=== PATIENT | female | born 1950 | race Caucasian/White ===

== ENCOUNTER → 2018-11-10 | Outpatient (CLI) | payer MEDICARE, MEDICAID | LOC: RAD 10:17 | PROVIDERS: ATTEND Nurse Practitioner | DX: Z12.31 Encounter for screening mammogram for malignant neoplasm of breast (principal) | CPT/HCPCS: 77067 ==

== ENCOUNTER 2018-12-07 05:39 | Outpatient (CLI) | payer MEDICARE, MEDICAID ==
[~2018-12-07] VITALS: Ht 168.9 cm; Wt 73.5 kg
[2018-12-07] MEDS ORDERED: ATOR20TA66 PO (15:04)
[2018-12-07] MEDS ORDERED: BUSP10TA95 PO (15:04)
== END 2018-12-07 15:11 | disposition home or self-care (01) ==
LOC: PREOP 05:39
PROVIDERS: ATTEND Surgery
DX: Z01.818 Encounter for other preprocedural examination (principal)

== ENCOUNTER 2018-12-15 07:00 | Day surgery (SDC) | payer MEDICARE, MEDICAID ==
[~2018-12-15] VITALS: Ht 168.9 cm; Wt 73.5 kg
[~2018-12-15 07:00] MED LIST: ATOR20TA66 PO; BUSP10TA95 PO
[2018-12-15] MEDS ORDERED: LACTATED RINGERS 1,000 ML IV ONE (07:03)
--- OUTSIDE RECORDS SUMMARY | 2018-12-15 07:03 | XMS REPORT | Continuity of Care Document ---
Author Organization Unknown Address Unknown Phone Unavailable Allergies There is no data. Medications There is no data. Problems There is no data. Procedures There is no data. Results Test Result Range LIPID PANEL - 11/03/18 08:40 CHOLESTEROL, TOTAL 233 mg/dL <200 HDL CHOLESTEROL 53 mg/dL >50 TRIGLYCERIDES 100 mg/dL <150 LDL-CHOLESTEROL 159 mg/dL (calc) NRG CHOL/HDLC RATIO 4.4 (calc) <5.0 NON HDL CHOLESTEROL 180 mg/dL (calc) <130 CMP - 11/03/18 08:40 GLUCOSE 96 mg/dL 65-99 UREA NITROGEN (BUN) 16 mg/dL 7-25 CREATININE 0.66 mg/dL 0.50-0.99 eGFR NON-AFR. PUERTO RICAN 92 mL/min/1.73m2 > OR=60 eGFR 107 mL/min/1.73m2 > OR=60 BUN/CREATININE RATIO NOT APPLICABLE (calc) 6-22 SODIUM 142 mmol/L 135-146 POTASSIUM 4.5 mmol/L 3.5-5.3 CHLORIDE 104 mmol/L 98-110 CARBON DIOXIDE 29 mmol/L 20-32 CALCIUM 9.9 mg/dL 8.6-10.4 PROTEIN, TOTAL 7.4 g/dL 6.1-8.1 ALBUMIN 4.5 g/dL 3.6-5.1 GLOBULIN 2.9 g/dL (calc) 1.9-3.7 ALBUMIN/GLOBULIN RATIO 1.6 (calc) 1.0-2.5 BILIRUBIN, TOTAL 0.4 mg/dL 0.2-1.2 ALKALINE PHOSPHATASE 91 U/L 33-130 AST 25 U/L 10-35 ALT 22 U/L 6-29 Encounters ACCT No. Visit Date/Time Discharge Status Pt. Type Provider Facility Loc./Unit Complaint [id number] 11/30/2018 16:00:00 11/30/2018 23:59:59 CLS Outpatient [facility] [id number] 11/03/2018 08:00:00 Document Registration
[2018-12-15] MEDS ORDERED: MIDAZOLAM 2 MG/2 ML (VERSED) VIAL ONE (07:19)
[2018-12-15] MEDS ORDERED: PROPOFOL INJECTION 50 ML IV ONE ×2 (07:19→08:13)
--- NOTE | 2018-12-15 07:37 | Progress Note-Pre Operative ---
Pre-Operative Progress Note H&P Reviewed The H&P was reviewed, patient examined and no changes noted. Date Seen by Provider: Dec 15, 2018 Time Seen by Provider: 07:37 Date H&P Reviewed: Dec 15, 2018 Time H&P Reviewed: 07:37 Pre-Operative Diagnosis: hx polyps MCKENNA ROJO DO Dec 15, 2018 07:37
[2018-12-15] MEDS ORDERED: LACTATED RINGERS 1,000 ML IV STA (07:54)
[2018-12-15 08:02] VITALS: BP 127/66
[2018-12-15 08:30] VITALS: BP 126/78
[2018-12-15 08:35] VITALS: BP 126/78
--- NOTE | 2018-12-15 08:43 | Discharge Inst-Simple/Standard ---
Discharge Inst-Standard Discharge Medications New, Converted or Re-Newed RX: RX on Chart Patient Instructions/Follow Up Plan of Care/Instructions/FU: 2 weeks Tod Activity as Tolerated: Yes Discharge Diet: Regular Diet MCKENNA ROJO DO Dec 15, 2018 08:43
--- NOTE | 2018-12-15 08:45 | Progress Note-Post Operative ---
Post-Operative Progess Note Surgeon (s)/Account Executive Key Accounts (s) Surgeon MCKENNA ROJO DO Account Executive Key Accounts: na Pre-Operative Diagnosis hx polyps Post-Operative Diagnosis colon polyps Procedure & Operative Findings Date of Procedure 12/15/18 Procedure Performed/Findings colonoscopy c hot bx polypectomy x 2 and snare polypectomy x 1 Anesthesia Type per clam grower Estimated Blood Loss Estimated blood loss (mL): none Specimens/Packing Specimens Removed ascending, hepatic flexure and sigmoid colon polyps MCKENNA ROJO DO Dec 15, 2018 08:45
[2018-12-15 09:00] VITALS: BP 148/83
[2018-12-15 09:15] VITALS: BP 148/83
--- NOTE | 2018-12-15 11:01 | Anesthesia-General Post-Op ---
MAC Patient Condition Mental Status/LOC: Same as Preop Cardiovascular: Satisfactory Nausea/Vomiting: Absent Respiratory: Satisfactory Pain: Controlled Complications: Absent Post Op Complications Complications None Follow Up Care/Instructions Patient Instructions None needed. Anesthesiology Discharge Order Discharge Order Patient is doing well, no complaints, stable vital signs, no apparent adverse anesthesia problems. No complications reported per nursing. CRISTO HINOJOSA CRNA Dec 15, 2018 11:01
--- NOTE | 2018-12-16 01:07 | OPERATIVE REPORT ---
DATE OF SERVICE: 12/15/2018 PREOPERATIVE DIAGNOSIS: History of colon polyps. POSTOPERATIVE DIAGNOSIS: Colon polyps. PROCEDURE: Colonoscopy with hot biopsy polypectomy x2 and snare polypectomy x1. SURGEON: Mckenna Baron DO ANESTHESIA: Per SALES AND MARKETING INTERN. ESTIMATED BLOOD LOSS: None. COMPLICATIONS: None. INDICATIONS: The patient is a 68-year-old female with history of colon polyps. She understands risks and benefits of procedure and wished to proceed with procedure. Consent was signed in the chart. The patient was taken to the endoscopy suite, placed in left lateral recumbent position. Timeout was performed. Digital rectal exam was performed. There were no palpable polyps, masses or ulcerations. Scope was inserted in the rectum, advanced all the way to the cecum with minimal difficulty. Prep was moderate even with irrigation and suction. The cecum was visualized. There were no polyps, masses or ulcerations visualized within the cecum. The scope was then slowly retracted back in the ascending colon, a larger polyp was present, which hot biopsy polypectomy was performed. Scope was continued slowly retracted back and in the hepatic flexure, another polyp was present, which hot biopsy polypectomy was performed. Scope was continued slowly retracted back and the areas were irrigated and suctioned where fair amount of stool was present. A complete evacuation of the remaining stool was unable to be performed trying to obtain best visualization. Scope was continuously retracted back through the transverse, descending colon, which was continued to be irrigated and suctioned. Once in the sigmoid colon, a little larger polyp was present, which snare polypectomy was performed. This was suctioned and obtained for specimen. The colon was continued to be irrigate and suction noting no other large pathology. Once in the rectum, scope was retroflexed noting no other pathology. Scope was returned to its normal position, slowly withdrawn until completely removed. The patient tolerated procedure well without any complications. She was taken to recovery room in stable condition. RECOMMENDATIONS: The patient will follow up in 2 weeks to discuss pathology results. We would recommend a repeat colonoscopy in 6 months to a year for reevaluation due to poor prep and a little larger polyps. Job ID: [id number] DocumentID: [id number] Dictated Date: 12/15/2018 16:04:36 Clinical Consultant Date: 12/16/2018 01:07:02 Dictated By: MCKENNA BARON DO [facility] CENTERJanie
== END 2018-12-15 09:15 | disposition home or self-care (01) ==
LOC: ENDO 07:00
PROVIDERS: ATTEND Surgery
DX: Z12.11 Encounter for screening for malignant neoplasm of colon (principal); D12.5 Benign neoplasm of sigmoid colon; D12.2 Benign neoplasm of ascending colon; D12.3 Benign neoplasm of transverse colon; E78.5 Hyperlipidemia, unspecified; Z79.899 Other long term (current) drug therapy; Z80.3 Family history of malignant neoplasm of breast; Z83.3 Family history of diabetes mellitus
CPT/HCPCS: 88305

== ENCOUNTER → 2019-05-15 | Outpatient (CLI) | payer MEDICARE, MEDICAID ==
--- NOTE | 2019-05-15 11:35 | Diagnostic Imaging Report ---
INDICATION: [id number] history of smoking. COMPARISON: None. TECHNIQUE: Routine noncontrast low-dose CT of the chest was performed per department protocol. Auto Exposure Controls were utilized during the CT exam to meet ALARA standards for radiation dose reduction. FINDINGS: Evaluation of lung acosta demonstrates single ovoid micronodular density within the superior segment of the left lower lobe. This, however, may be endobronchial in location. Lesion in question measures 3 x 7 mm (image 114, series 2). There is background mild emphysematous disease. No other suspicious pulmonary nodule or mass is identified. There is no focal consolidation, large effusion, nor pneumothorax. Cardiomediastinal structures show normal heart size. There is no large pericardial effusion. There is mild scattered calcified aortic atherosclerosis and minimal calcified coronary atherosclerosis. Mildly prominent precarinal lymph node measures 1.5 x 1.4 cm. A few minimally prominent, yet subcentimeter AP window lymph nodes are also noted. No abnormal hilar or axillary adenopathy is identified. Osseous structures show no acute abnormalities. Included portions of the upper abdomen are unremarkable as well. IMPRESSION: 1. Single micronodular density involving the superior segment of the left lower lobe, which again may be endobronchial in location. Six-month follow-up is recommended to ensure stability. 2. Background mild emphysematous disease. 3. Slightly prominent mediastinal adenopathy as described above. This could be evaluated on follow-up as well. LUNG-RADS CATEGORY: 3. Dictated by: Dictated on workstation # [id number]
== END ==
LOC: RAD 08:42
PROVIDERS: ATTEND Nurse Practitioner Family
DX: Z12.2 Encounter for screening for malignant neoplasm of respiratory organs (principal); J43.9 Emphysema, unspecified; J98.4 Other disorders of lung; I70.0 Atherosclerosis of aorta; I25.10 Atherosclerotic heart disease of native coronary artery without angina pectoris; F17.210 Nicotine dependence, cigarettes, uncomplicated

== ENCOUNTER 2019-05-29 05:37 | Outpatient (CLI) | payer MEDICARE, MEDICAID ==
[~2019-05-29] VITALS: Ht 167 cm; Wt 70.4 kg
[2019-05-29] MEDS ORDERED: VISM150C PO (14:20)
[2019-05-29] MEDS ORDERED: UMEC62.5 IH (14:21)
== END 2019-05-29 14:24 | disposition home or self-care (01) ==
LOC: PREOP 05:37
PROVIDERS: ATTEND Surgery
DX: Z01.818 Encounter for other preprocedural examination (principal)

== ENCOUNTER → 2019-06-22 | Outpatient (CLI) | payer MEDICARE, MEDICAID ==
[~2019-06-22] MED LIST changes: +RT-ALBUTEROL SULF 2.5 MG/3 ML PRE-MIX VIAL INH ONE; +UMEC62.5 IH; +VISM150C PO
[2019-06-22 15:35] LABS: ABG BASE EXCESS 0.3 MMOL/L (-2.5-2.5); ABG OXYGEN SATURATION 94 % (94-100); ABG PCO2 35 MMHG (35-45); ABG PH 7.44 (7.37-7.43); ABG PO2 59 MMHG (79-93); ABG TCO2 25.1 MMOL/L (21.0-31.0)
[2019-06-22 15:37] LABS: ALLENS TEST POSITIVE
[2019-06-22 15:38] LABS: PATIENT TEMP 36.5; VENTILATOR NO
== END ==
LOC: RT 14:25
PROVIDERS: ATTEND Nurse Practitioner Family
DX: J30.9 Allergic rhinitis, unspecified (principal); C43.9 Malignant melanoma of skin, unspecified; R91.8 Other nonspecific abnormal finding of lung field; Z72.0 Tobacco use
CPT/HCPCS: 36600; 82805; 94060; 94640; 94726; 94729

== ENCOUNTER 2019-06-25 09:00 | Outpatient (CLI) | payer MEDICARE, MEDICAID ==
[~2019-06-25] VITALS: Ht 165 cm; Wt 72.7 kg
[~2019-06-25 09:00] MED LIST changes: -RT-ALBUTEROL SULF 2.5 MG/3 ML PRE-MIX VIAL INH ONE
== END 2019-06-25 09:32 | disposition home or self-care (01) ==
LOC: PREOP 09:00
PROVIDERS: ATTEND Internal Medicine Critical Care Medicine
DX: Z01.818 Encounter for other preprocedural examination (principal)

== ENCOUNTER → 2019-06-26 | Outpatient (CLI) | payer MEDICARE, MEDICAID | LOC: RAD 08:15 | PROVIDERS: ATTEND Nurse Practitioner Family | DX: C43.9 Malignant melanoma of skin, unspecified (principal); R06.00 Dyspnea, unspecified; J30.9 Allergic rhinitis, unspecified; R06.89 Other abnormalities of breathing; R05 Cough; R91.8 Other nonspecific abnormal finding of lung field; Z72.0 Tobacco use ==

== ENCOUNTER → 2019-11-23 | Outpatient (CLI) | payer MEDICARE, MEDICAID ==
[~2019-11-23] MED LIST changes: +CATHETER FLUSH 10 ML SYR IV PRN; +HOLD METFORMIN - RECEIVED CONTRAST 20 ML VIAL IV SCH; +IOHEXOL 350 MG/ML 100 ML (OMNIPAQUE 350) VIAL IV ONE; +NS 100 ML (IVPB) BAG IV ONE
[2019-11-23 09:37] LABS: BUN/CREATININE RATIO 14; CREATININE SERUM 0.78 MG/DL (0.60-1.30); GFR ESTIMATED > 60
--- NOTE | 2019-11-23 11:16 | Diagnostic Imaging Report ---
PROCEDURE: CT chest with contrast only. TECHNIQUE: Multiple contiguous axial images were obtained through the chest after administration of intravenous contrast. Auto Exposure Controls were utilized during the CT exam to meet ALARA standards for radiation dose reduction. INDICATION: Follow-up of pulmonary nodule. COMPARISON: CT lung cancer screening performed on 05/15/2019. FINDINGS: Trachea and Airways: Patent without evidence of tracheal or endobronchial lesion. The previously described possible endobronchial nodule in a subsegmental airway supplying the left lower lobe is no longer appreciated. Lungs and Pleura: Scattered punctate benign calcified granuloma are demonstrated in both upper lobes and in the right lower lobe. No new suspicious nodule is identified. There is mild subsegmental dependent atelectasis in both lower lobes. The lungs are otherwise clear. Mild emphysematous change is demonstrated in the upper lobes. No pneumothorax or pleural effusion. Mediastinum and Lymph nodes: Low-attenuation nodules in both thyroid lobes do not demonstrate suspicious change and are of doubtful clinical significance, with the largest on the left measuring approximately 1 cm. There has been no change in appearance of mildly prominent precarinal lymph node, as well as other mildly prominent prevascular, paratracheal, and right hilar lymph nodes. Normal cardiac size. No pericardial effusion. The esophagus is nondistended. Chest wall and Soft tissues: Unremarkable. Diaphragm and Upper Abdomen: Partially imaged calcified gallstones are again demonstrated near the neck of the gallbladder. The diaphragm and visualized upper abdomen are otherwise unremarkable. Bones: Multilevel degenerative changes involve the spine. Partially imaged anterior cervical fusion hardware is demonstrated. No acute osseous abnormality is appreciated. Incidental note is made of an unchanged benign hemangioma in the T7 vertebral body. IMPRESSION: Resolution of the previously demonstrated endoluminal nodule in a subsegmental airways supplying the left lower lobe, which may have represented focal mucous plugging. No new suspicious nodule is identified. Given that the patient previously had a low-dose chest CT for lung cancer screening, continued annual screening is recommended. No acute cardiopulmonary process. There has been no suspicious change in CT appearance of the chest, including mildly prominent mediastinal and right hilar lymph nodes, which may be reactive in nature. No significant change in CT appearance of the chest. Dictated by: Dictated on workstation # [id number]
== END ==
LOC: RAD 08:20
PROVIDERS: ATTEND Nurse Practitioner Family
DX: C43.9 Malignant melanoma of skin, unspecified (principal); R91.8 Other nonspecific abnormal finding of lung field; Z72.0 Tobacco use
CPT/HCPCS: 36415; 71260; 82565; 84520

== ENCOUNTER → 2020-02-11 | Outpatient (CLI) | payer MEDICARE, MEDICAID ==
[~2020-02-11] MED LIST changes: -CATHETER FLUSH 10 ML SYR IV PRN; -HOLD METFORMIN - RECEIVED CONTRAST 20 ML VIAL IV SCH; -IOHEXOL 350 MG/ML 100 ML (OMNIPAQUE 350) VIAL IV ONE; -NS 100 ML (IVPB) BAG IV ONE
--- NOTE | 2020-02-11 13:39 | Diagnostic Imaging Report ---
EXAMINATION: Digital mammogram bilateral diagnostic with CAD. INDICATION: Right breast pain and lump. COMPARISON: This study was compared to the prior exams of 06/05/2015, 12/22/2016, and 11/10/2018. FINDINGS: At this time, the patient does complain of a lump and pain in the upper outer aspect of the right breast. A marker was placed over the area of concern. There is no primary or secondary sign of malignancy evident in this area. Even so, I would recommend that ultrasound be performed for further study. The fibroglandular tissue in both breasts is heterogeneously dense. This does limit the sensitivity of this exam. Overall, there does not appear to have been any significant change when compared to the prior study. There is no primary or secondary sign of malignancy noted. IMPRESSION: 1. There is no evidence of malignancy in the region of the patient's pain and lump in the upper outer quadrant of the right breast. Ultrasound would be recommended for further study. 2. The overall appearance of the breasts is otherwise stable. No new abnormality has developed. ACR BI-RADS Category 0: Incomplete. (Needs additional imaging evaluation). Result letter will be mailed to the patient. Note: At least 10% of breast cancer is not imaged by mammography. Dictated by: Dictated on workstation # [id number]
--- NOTE | 2020-02-11 15:18 | Diagnostic Imaging Report ---
EXAMINATION: Right breast ultrasound limited. INDICATION: Right breast pain. FINDINGS: By history, the patient has pain and a palpable abnormality in the upper outer quadrant of the right breast. The diagnostic mammogram performed prior to this study failed to show any sign of malignancy or an acute abnormality. On this study, there is a fairly well-circumscribed 1.0 x 0.4 x 0.8 cm avascular hypoechoic lesion in the 11 o'clock position of the breast roughly 7 cm from the nipple. During my Real-time examination of this finding, this was somewhat difficult to separate from the adjacent fibroglandular tissue; however, this still could represent a discrete lesion. Even so, I suspect that this is a benign process. I would recommend that a short-term (6 month) followup mammogram and ultrasound exam of the right breast be obtained for further study. IMPRESSION: 1. There is a small benign-appearing hypoechoic lesion in the 11 o'clock position of the right breast. Considerations and recommendations as above. 2. There is no solid mass to suggest malignancy. ACR BI-RADS Category 3: Probably benign findings. Dictated by: Dictated on workstation # [id number]
== END ==
LOC: RAD 13:15
PROVIDERS: ATTEND Nurse Practitioner Family
DX: N63.11 Unspecified lump in the right breast, upper outer quadrant (principal)
CPT/HCPCS: 76642; 77066; G0279; 77062

== ENCOUNTER → 2020-02-26 | Outpatient (CLI) | payer MEDICARE, MEDICAID ==
--- NOTE | 2020-02-26 14:54 | Diagnostic Imaging Report ---
INDICATION: Postmenopausal state COMPARISON: None available FINDINGS: AP Spine L1-L4: [BMD (g/cm2): 1.295] [T-Score: 0.8] [Z-Score: 2.2] [BMD Previous: na] [BMD % Change: na] LT Hip Neck: [BMD (g/cm2): 0.840] [T-Score: -1.4] [Z-Score: 0.0] LT Hip Total: [BMD (g/cm2):0.889] [T-Score:-0.9] [Z-Score: 0.2] [BMD Previous: na] [BMD % Change: na] RT Hip Neck: [BMD (g/cm2):0.864] [T-Score:-1.2] [Z-Score:0.2] RT Hip Total: [BMD (g/cm2):0.922] [T-score:-0.7] [Z-Score:0.5] [BMD Previous:na] [BMD % Change:na] *Indicates significant change from prior examination based on 95% confidence level. World Health Organization criteria for BMD interpretation classify patients as Normal (T-score at or above -1.0), Osteopenic (T-score between -1.0 and -2.5) or Osteoporotic (T-score at or below -2.5). LIMITATIONS AND MODIFICATION: None. FRACTURE RISK (FRAX SCORE): The ten year probability of (%): Major Osteoporotic Fracture: [9.7] Hip Fracture: [1.9] IMPRESSION: 1. Osteopenia (Low bone mass). 2. Baseline examination. 3. See below National Osteoporosis Foundation guidelines on when to potentially initiate pharmacologic therapy. Based on the National Osteoporosis Foundation Guidelines, pharmacologic treatment should be initiated in any of the following, unless clinical conditions suggest otherwise: * Any patient with prior fragility fracture of the hip or vertebrae. A spine fracture indicates 5X risk for subsequent spine fracture and 2X risk for subsequent hip fracture. * Osteoporosis (T-score <-2.5). * Postmenopausal women and men age 50 and older with low bone mass/osteopenia (T-score between -1.0 and -2.5) by DXA and 10-year major osteoporotic fracture greater than 20% or a 10-year probability of hip fracture greater than 3%. These fracture risks are supplied above in the FRAX score, if applicable. * Clinician judgement and/or patient preferences may indicate treatment for people with 10-year fracture probabilities above or below these levels. Dictated by: Dictated on workstation # [id number]
== END ==
LOC: RAD 13:13
PROVIDERS: ATTEND Nurse Practitioner Family
DX: M81.8 Other osteoporosis without current pathological fracture (principal); M85.88 Other specified disorders of bone density and structure, other site; Z78.0 Asymptomatic menopausal state
CPT/HCPCS: 77080

== ENCOUNTER → 2020-07-28 | Outpatient (CLI) | payer MEDICARE, MEDICAID ==
--- NOTE | 2020-07-28 15:44 | Diagnostic Imaging Report ---
INDICATION: Six-month follow-up right breast nodule. CORRELATION is made with diagnostic mammogram earlier the same day as well as prior right breast ultrasound from 02/11/2020. Hypoechoic nodule at 11:00 location right breast, 7 cm from the nipple is smaller measuring 6 mm x 4 mm x 6 cm compared with 10 mm x 4 mm x 8 mm on prior. No new mass is detected. IMPRESSION: BI-RADS Category 3 Slight decrease in size of hypoechoic nodule at the 11:00 location right breast, 7 cm from the nipple. Additional follow-up in 6 months is recommended to show continued stability. ACR BI-RADS Category 3: Probably benign findings. Result letter will be mailed to the patient. Note: At least 10% of breast cancer is not imaged by mammography. Dictated by: Dictated on workstation # [id number]
--- NOTE | 2020-07-28 19:34 | Diagnostic Imaging Report ---
Indication: Six-month follow up right breast nodule. Correlation is made with prior exam from 02/11/2020 and 11/10/2018. Unilateral right 2-D and 3-D diagnostic mammography was performed with CAD. Right breast is heterogeneously dense, limiting the sensitivity of mammography. Nodular density in the outer right breast is stable. No new mass or malignant appearing microcalcifications are seen. Right axilla is unremarkable. IMPRESSION: BI-RADS Category 0 Stable right mammogram. Ultrasound of the right breast will be performed today. ACR BI-RADS Category 0: Incomplete. (Needs additional imaging evaluation). Result letter will be mailed to the patient. Note: At least 10% of breast cancer is not imaged by mammography. Dictated by: Dictated on workstation # [id number]
== END ==
LOC: RAD 13:32
PROVIDERS: ATTEND Nurse Practitioner Family
DX: N63.11 Unspecified lump in the right breast, upper outer quadrant (principal)
CPT/HCPCS: 76642; 77065; G0279

== ENCOUNTER → 2021-01-28 | Outpatient (CLI) | payer MEDICARE, MEDICAID ==
--- NOTE | 2021-01-28 13:35 | Diagnostic Imaging Report ---
Indication: Six-month follow-up right breast nodule. Correlation is made prior mammogram 02/03/2020 11/10/2018. 2-D and 3-D bilateral diagnostic mammography was performed with CAD. Both breasts remain heterogeneously dense, limiting the sensitivity of mammography. Small nodules in the upper outer right breast are stable. There is a slightly nodular density in the medial right breast best seen on the CC view just medial to the nipple line and approximately 5 cm from the nipple. This may be at the nipple line on the MLO view. Further evaluation of this area with ultrasound is recommended. Left breast is unremarkable. There are occasional benign calcifications. No malignant-appearing microcalcifications are seen. Axillae are unremarkable. IMPRESSION: 1. Stable nodular densities in the upper outer right breast. Even so, follow-up ultrasound of this area as well as the area of nodularity in the slightly medial right breast is recommended and will be performed today. ACR BI-RADS Category 0: Incomplete. (Needs additional imaging evaluation). Result letter will be mailed to the patient. Note: At least 10% of breast cancer is not imaged by mammography. Dictated by: Dictated on workstation # [id number]
--- NOTE | 2021-01-28 15:36 | Diagnostic Imaging Report ---
INDICATION: Six-month followup of right breast nodule as well as sonographic evaluation of a new medial breast nodule. COMPARISON: Correlation is made with the diagnostic mammogram from earlier this same day and right breast ultrasound from 07/28/2020. FINDINGS: The known circumscribed hypoechoic nodule at the 11 o'clock location of the right breast 7 cm from the nipple is stable at 7 mm x 4 mm x 6 mm. Interrogation of the medial right breast was also performed due to a new density noted on today's mammogram. There is a hypoechoic nodule at the 1 o'clock location 4 cm from the nipple measuring 10 mm x 5 mm x 7 mm. This has fairly well-circumscribed margins apart from slight obscuration of a portion of the margins. No internal vascularity is seen. No posterior acoustic enhancement or shadowing is detected. IMPRESSION: 1. Stable hypoechoic nodule at the 11 o'clock location 7 cm from the nipple. This now shows 1 year stability. Continued sonographic followup with a repeat study in 6 months is recommended to confirm stability. 2. New hypoechoic indeterminate nodule at the 1 o'clock location 4 cm from the nipple. Tissue sampling is recommended. This would be amenable to ultrasound-guided core biopsy. ACR BI-RADS Category 4: Suspicious abnormality. Result letter will be mailed to the patient. Note: At least 10% of breast cancer is not imaged by mammography. Dictated by: Dictated on workstation # [id number]
== END ==
LOC: RAD 13:15
PROVIDERS: ATTEND Nurse Practitioner Family
DX: Z12.31 Encounter for screening mammogram for malignant neoplasm of breast (principal); N63.10 Unspecified lump in the right breast, unspecified quadrant
CPT/HCPCS: 76642; 77066; G0279; 77062

== ENCOUNTER → 2021-02-09 | Outpatient (CLI) | payer MEDICARE, MEDICAID ==
[~2021-02-09] VITALS: Ht 167.6 cm; Wt 72.7 kg
[~2021-02-09] MED LIST changes: +LIDOCAINE 1% INJ 20 ML 20 ML VIAL INJ ONE
--- NOTE | 2021-02-09 14:40 | Diagnostic Imaging Report ---
Indication: Right breast nodule. Patient presents for ultrasound-guided biopsy. Patient brought to the ultrasound room placed on table in the supine position. Ultrasound imaging of the right breast was performed to evaluate appropriate entry site. The right breast was then prepped and draped in usual sterile fashion. Small amount of 1% lidocaine was utilized for local anesthesia. Multiple core biopsies were obtained of the hypoechoic nodule at 1:00 location of the right breast, 4 cm from the nipple utilized in the 13-gauge hand-held vacuum-assisted mammotome device. Marker clip was then deployed. Hemostasis was obtained using manual compression. Patient tolerated procedure well and was sent for postprocedure mammogram in satisfactory condition. IMPRESSION: Successful ultrasound guided biopsy of the hypoechoic nodule 1:00 location of the right breast, 4 cm from the nipple utilizing hand-held vacuum-assisted mammotome device. Pathology results are currently pending. Dictated by: Dictated on workstation # [id number]
--- NOTE | 2021-02-09 16:51 | Diagnostic Imaging Report ---
INDICATION: Right breast nodule, status post ultrasound-guided right breast biopsy. FINDINGS: Unilateral right 2D CC and ML mammography was performed after the patient underwent ultrasound-guided core biopsy. There is a marker clip in the upper and inner aspect of the right breast at mid depth at the site of previously noted nodule. IMPRESSION: Satisfactory marker clip location status post ultrasound-guided right breast biopsy. Dictated by: Dictated on workstation # [id number]
== END ==
LOC: RAD 12:40
PROVIDERS: ATTEND Nurse Practitioner Family
DX: N63.12 Unspecified lump in the right breast, upper inner quadrant (principal)
CPT/HCPCS: 19083; 77065; A4648; G0279

== ENCOUNTER → 2021-02-10 | Outpatient (CLI) | payer MEDICARE, MEDICAID ==
[~2021-02-10] MED LIST changes: -LIDOCAINE 1% INJ 20 ML 20 ML VIAL INJ ONE
--- NOTE | 2021-02-10 17:58 | Diagnostic Imaging Report ---
CT Lung Screening INDICATION: Current smoker with 70-xybh-kcse history, for low-dose CT screening. TECHNIQUE: Noncontrast, low-dose CT imaging performed according to the lung cancer screening protocol. Auto Exposure Controls were utilize during the CT exam to meet ALARA standards for radiation dose reduction. COMPARISON: 11/23/2019. FINDINGS: Air trapping and some chronic areas of mild subpleural fibrosis are stable. No acute infiltrate or evidence for edema. There is no suspicious or dominant lung mass. No pathologically enlarged thoracic lymph nodes. No chest effusion. No suspicious chest wall pathology. Visualized upper abdomen is nonacute. IMPRESSION: 1. No findings of lung cancer, continued annual low-dose CT screening follow-up in one year's time recommended. 2. Chronic emphysema. No acute appearing findings. LUNG-RADS CATEGORY: 1 MODIFIER: None OTHER SIGNIFICANT FINDINGS: As above. Dictated by: Dictated on workstation # [id number]
== END ==
LOC: RAD 15:15
PROVIDERS: ATTEND Nurse Practitioner Family
DX: Z12.2 Encounter for screening for malignant neoplasm of respiratory organs (principal); J43.8 Other emphysema; F17.210 Nicotine dependence, cigarettes, uncomplicated
CPT/HCPCS: 71271